=== PATIENT | male | born 1980 | race Caucasian/White ===

== ENCOUNTER 2019-11-09 14:37 | Emergency (ER) | payer OTHER ==
[~2019-11-09] VITALS: Ht 195.6 cm; Wt 86.2 kg
[~2019-11-09 14:37] MED LIST: Z.0.NEURONTIN100 MG PO; Z.0.NORCO 10-325 T1 PO; Z.0.SOMA350 MG PO
--- OUTSIDE RECORDS SUMMARY | 2019-11-09 14:40 | XMS REPORT ---
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 Allergies, Adverse Reactions, Alerts This patient has no known allergies or adverse reactions. Medications This patient has no known medications. Encounters Start Date/Time End Date/Time Encounter Type Admission Type Attending [facility] Care Department Encounter ID 2019-05-21 09:07:50 2019-05-21 09:07:50 Outpatient [facility] [id number] 2019-03-23 00:00:00 2019-03-23 00:00:00 Outpatient [facility] [id number] 2019-03-11 08:06:03 2019-03-11 08:06:03 Outpatient [facility] [id number] 2019-02-04 10:05:19 2019-02-04 10:05:19 Outpatient [facility] [id number] 2019-01-19 10:41:38 2019-01-19 10:41:38 Outpatient [facility] [id number] 2019-01-19 09:46:55 2019-01-19 09:46:55 Outpatient [facility] [id number]
--- NOTE | 2019-11-09 16:24 | Diagnostic Imaging Report ---
Left rib series Clinical indications: Trauma, fall, pain Comparison: None Findings: Frontal view the chest and multiple views of the left ribs were obtained. There are acute displaced left third rib and nondisplaced left fifth rib fractures. The distal fracture fragment of the left third rib is displaced approximately one shaft width inferiorly. The heart is within normal limits of size. The lungs are clear. There is no pleural effusion or pneumothorax. Impression: Acute displaced left third rib and nondisplaced left fifth rib fractures. No pneumothorax. Signed by: Liborio Malcolm MD on 11/09/2019 4:21 PM
--- NOTE | 2019-11-09 16:28 | Diagnostic Imaging Report ---
Left shoulder, 3 views Clinical indication: Trauma, pain Comparison: None Impression: 3 views of the left shoulder were obtained. There is widening of the acromioclavicular joint to approximately 20 mm. The left clavicle is subluxed superiorly. There is a small ossific fragment within the acromioclavicular space which may be secondary to avulsion of the distal clavicle. The glenohumeral joint is intact. See separate report for rib findings. Signed by: Liborio Malcolm MD on 11/09/2019 4:26 PM
--- NOTE | 2019-11-09 16:32 | Diagnostic Imaging Report ---
Cervical spine, 3 views Clinical indications: Trauma, pain Comparison: None Findings: AP, lateral, and odontoid views of the cervical spine were obtained. Cervical vertebral body alignment is normal. There is no radiographic evidence of acute fracture or subluxation of the cervical spine. If there is high clinical concern for ligamentous injury MRI may be obtained. Signed by: Liborio Malcolm MD on 11/09/2019 4:30 PM
--- NOTE | 2019-11-09 16:35 | Diagnostic Imaging Report ---
Thoracic spine, 3 views on 4 radiographs Clinical indications: Trauma, pain Comparison: None Findings: Thoracic vertebral body heights are well-maintained. The pedicles are well visualized. There is no evidence of acute fracture or subluxation of the thoracic spine. Signed by: Liborio Malcolm MD on 11/09/2019 4:32 PM
--- NOTE | 2019-11-09 16:37 | Diagnostic Imaging Report ---
Lumbar spine, 3 views Clinical indications: Fall, pain Comparison: None Findings: AP, lateral, lateral cone-down views of the lumbosacral spine were obtained. There are 5 nonrib-bearing lumbar vertebral bodies of normal height. Alignment is anatomic. The disc spaces are preserved. No evidence of spondylolisthesis. Signed by: Liborio Malcolm MD on 11/09/2019 4:34 PM
[2019-11-09 16:48] VITALS: BP 137/82
[2019-11-09] MEDS ORDERED: TYLENOL WITH C1 EACH PO (16:52)
[2019-11-09] MEDS ORDERED: CYCLOBENZAPRINE5 MG PO (16:53)
[2019-11-10] MEDS ORDERED: KEFLEX500 MG PO (00:07)
== END 2019-11-09 16:55 | disposition home or self-care (01) ==
LOC: FSED 14:37
DX: S22.42XA Multiple fractures of ribs, left side, initial encounter for closed fracture (principal); M54.2 Cervicalgia; S43.102A Unspecified dislocation of left acromioclavicular joint, initial encounter; W01.0XXA Fall on same level from slipping, tripping and stumbling without subsequent striking against object, initial encounter; Y93.01 Activity, walking, marching and hiking; Y92.830 Public park as the place of occurrence of the external cause
CPT/HCPCS: 71101; 72040; 72070; 72100; 99283

== ENCOUNTER 2019-11-09 22:51 | Emergency (ER) | payer OTHER ==
[~2019-11-09] VITALS: Ht 195.6 cm; Wt 86.2 kg
[~2019-11-09 22:51] MED LIST changes: +CYCLOBENZAPRINE5 MG PO; +TYLENOL WITH C1 EACH PO
[2019-11-09] MEDS ORDERED: LIDOCAINE HCL 2% LOCAL 20 ML VIAL INJ ONE (23:45)
--- NOTE | 2019-11-10 | NUR ---
LAC REPAIR OVER LEFT EYE COMPLETED BY DR HERRERA. 5 STITCHES PLACED, BLEEDING CONTROLLED AT THIS TIME. WOUND CARE INSTRUCTIONS GIVEN TO PATIENT
[2019-11-10] MEDS ORDERED: KEFLEX500 MG PO (00:07)
== END 2019-11-10 00:34 | disposition home or self-care (01) ==
LOC: FSED 22:51
DX: S01.112A Laceration without foreign body of left eyelid and periocular area, initial encounter (principal); W01.0XXA Fall on same level from slipping, tripping and stumbling without subsequent striking against object, initial encounter; Y92.008 Other place in unspecified non-institutional (private) residence as the place of occurrence of the external cause; F17.210 Nicotine dependence, cigarettes, uncomplicated
CPT/HCPCS: 99283

== ENCOUNTER 2020-10-20 20:08 | Emergency (ER) | payer OTHER ==
[~2020-10-20] VITALS: Ht 195.6 cm; Wt 86.2 kg
[~2020-10-20 20:08] MED LIST changes: +KEFLEX500 MG PO
== END 2020-10-20 22:22 | disposition home or self-care (01) ==
LOC: FSED 20:25
DX: S81.812A Laceration without foreign body, left lower leg, initial encounter (principal); W01.118A Fall on same level from slipping, tripping and stumbling with subsequent striking against other sharp object, initial encounter; F17.200 Nicotine dependence, unspecified, uncomplicated
CPT/HCPCS: 99283

== ENCOUNTER 2021-07-20 17:09 | Emergency (ER) | payer OTHER ==
[~2021-07-20] VITALS: Ht 195.6 cm; Wt 88.5 kg
[2021-07-20] MEDS ORDERED: ACETAMINOPHEN-1 EAC4 PO (17:41)
[2021-07-20] MEDS ORDERED: IBUPROFEN IB200 MG PO (17:41)
[2021-07-20 19:33] VITALS: BP 150/82
== END 2021-07-20 19:33 | disposition home or self-care (01) ==
LOC: FSED 17:30
DX: S82.424A Nondisplaced transverse fracture of shaft of right fibula, initial encounter for closed fracture (principal); W01.0XXA Fall on same level from slipping, tripping and stumbling without subsequent striking against object, initial encounter; Y93.01 Activity, walking, marching and hiking; F17.210 Nicotine dependence, cigarettes, uncomplicated
CPT/HCPCS: 99283